=== PATIENT | female | born 2000 | race Caucasian/White ===

== ENCOUNTER 2023-10-25 15:03 | Emergency (ER) | payer SELFPAY ==
[~2023-10-25] VITALS: Ht 162.6 cm; Wt 113.4 kg
[2023-10-25 15:08] VITALS: BP 122/82; PULSE 112; RESP 16; TEMP 97.6; TEMP 98.7; O2SAT 94
[2023-10-25] MEDS ORDERED: BACITRACIN OINT 500 UNITS/GM PKT TP ONE (15:16)
[2023-10-25] MEDS: BACITRACIN OINT 500 UNITS/GM PKT TP ONE (15:24)
== END 2023-10-25 15:27 | disposition home or self-care (01) ==
LOC: MED 15:03
DX: S61.432A Puncture wound without foreign body of left hand, initial encounter (principal); X58.XXXA Exposure to other specified factors, initial encounter; Y93.89 Activity, other specified; Y92.89 Other specified places as the place of occurrence of the external cause; Y99.8 Other external cause status
CPT/HCPCS: 90471; 90715; 99283